=== PATIENT | male | born 1970 | race African-American/Black ===

== ENCOUNTER 2016-12-04 08:25 | Emergency (ER) | payer MEDICAID ==
[~2016-12-04] VITALS: Ht 180.3 cm; Wt 93.0 kg
[~2016-12-04 08:25] MED LIST: AMLO5TAB4 PO; ASPI-1035 PO; ATEN-42 PO; ATOR20TA65 PO; CARV3.1242 PO; FENO145T19 PO; HYDR25TA PO
[2016-12-04] MEDS ORDERED: METOCLOPRAMIDE HCL 10MG TABLET PO ONE (09:00)
[2016-12-04] MEDS ORDERED: DIPHENHYDRAMINE 50MG CAPSULE PO ONE (09:00)
[2016-12-04] MEDS ORDERED: CARVEDILOL 3.125 MG TABLET PO ONE (09:00)
[2016-12-04] MEDS ORDERED: KETOROLAC 60MG/2ML VIAL IM ONE (09:00)
[2016-12-04] MEDS ORDERED: CARVEDILOL 3.125 MG TABLET PO NR (09:45)
[2016-12-04] MEDS ORDERED: MORPHINE SULFATE 10 MG/ML CPJ IM ONE (11:00)
[2016-12-04 11:27] VITALS: BP 205/127
[2016-12-05] MEDS ORDERED: FURO20TA4 PO (13:18)
[2016-12-05] MEDS ORDERED: CARV25TA47 PO (13:18)
[2016-12-05] MEDS ORDERED: [UNRECOGNIZED DRUG - CODE] GT (13:18)
[2016-12-05] MEDS ORDERED: CLON0.2T PO (13:18)
[2016-12-05] MEDS ORDERED: IBUP-1510 PO (13:18)
[2016-12-05] MEDS ORDERED: FURO40TA2 PO (13:18)
== END 2016-12-04 12:53 | disposition home or self-care (01) ==
LOC: ER 08:36
DX: I11.0 Hypertensive heart disease with heart failure (principal); Z91.14 Patient's other noncompliance with medication regimen; Z71.89 Other specified counseling; G43.909 Migraine, unspecified, not intractable, without status migrainosus; Z79.82 Long term (current) use of aspirin
CPT/HCPCS: 96372; 99284; J1885; J2270; Z7610; J8597; Q0163

== ENCOUNTER 2016-12-05 13:09 | Emergency (ER) | payer MEDICAID ==
[~2016-12-05] VITALS: Ht 180.3 cm; Wt 100.0 kg
[2016-12-05] MEDS ORDERED: [UNRECOGNIZED DRUG - CODE] GT (13:18)
[2016-12-05] MEDS ORDERED: CLON0.2T PO (13:18)
[2016-12-05] MEDS ORDERED: FURO20TA4 PO (13:18)
[2016-12-05] MEDS ORDERED: CARV25TA47 PO (13:18)
[2016-12-05] MEDS ORDERED: IBUP-1510 PO (13:18)
[2016-12-05] MEDS ORDERED: FURO40TA2 PO (13:18)
[2016-12-05] MEDS ORDERED: PROCHLORPERAZINE MALEATE 10MG TABLET PO ONE (15:00)
[2016-12-05 15:02] LABS: BASOPHILS % 0.6 % (0.0-2.0); DIFFERENTIAL COMMENT 0; EOSINOPHILS % 2.6 % (0.0-5.0); HEMATOCRIT. 44.8 % (42.0-52.0); HEMOGLOBIN. 14.7 g/dL (14.0-18.0); MEAN CORPUSCULAR HEMOGLOBIN 25.7 pg (28.0-32.0); MEAN CORPUSCULAR HGB CONC 32.8 g/dL (31.0-37.0); MEAN CORPUSCULAR VOLUME 78.4 fL (80.0-94.0); MEAN PLATELET VOLUME 10.1 fl (7.4-10.4); MONOCYTES % 7.5 % (2.0-8.0); NEUTROPHILS % 68.3 % (40.0-76.0); PLATELET 178 x1000/uL (130-400); RED BLOOD CELL COUNT 5.71 mill/uL (4.7-6.1); RED CELL DISTRIBUTION WIDTH 15.1 % (11.6-14.6); WHITE BLOOD COUNT 9.2 x1000/uL (4.5-11.0)
[2016-12-05 15:07] LABS: CHLORIDE 105 mEq/L (98-107); INDEX HEMOLYSI 1 (1-3); INDEX ICTERIC 1 (1-4); INDEX LIPEMIC 2 (1-3)
[2016-12-05 15:10] LABS: PARTIAL THROMBOPLASTIN TIME 25.5 sec (24.0-34.0); PROTHROMBIN TIME 10.8 sec
[2016-12-05 15:15] LABS: ALANINE AMINOTRANSFERASE 20 IU/L (13-61); ALBUMIN 3.2 g/dL (3.4-5.0); ANION GAP 11; CALCIUM 8.7 mg/dL (8.5-10.1); CARBON DIOXIDE 27 mEq/L (21-32); UREA NITROGEN BLOOD 31 mg/dL (7-21); eGFR > 60 mL/min (>60)
[2016-12-05] MEDS ORDERED: MORPHINE SULFATE 4 MG/ML CPJ (NOT FOR IM USE) IV ONE (17:00)
[2016-12-05] MEDS ORDERED: ONDANSETRON HCL 4MG/2ML VIAL IV ONE (17:00)
[2016-12-05 18:06] VITALS: BP 146/99
== END 2016-12-05 18:16 | disposition home or self-care (01) ==
LOC: ER 13:25
DX: I11.0 Hypertensive heart disease with heart failure (principal); Z91.14 Patient's other noncompliance with medication regimen; R51 Headache; Z71.89 Other specified counseling; E78.00 Pure hypercholesterolemia, unspecified; Z79.82 Long term (current) use of aspirin; Z79.899 Other long term (current) drug therapy
CPT/HCPCS: 36415; 70450; 71010; 80053; 85025; 85610; 85730; 93005; 96374; 96375; 99285; J2270; J2405; Z7610; Q0164